=== PATIENT | female | born 1990 | race African-American/Black ===

== ENCOUNTER 2020-07-25 05:58 | Inpatient (IN) ==
--- NOTE | 2020-07-24 20:31 | History and Physical Report ---
DATE OF ADMISSION: 07/25/2020 CHIEF COMPLAINT: Intrauterine , oligohydramnios, previous x2. HISTORY OF PRESENT ILLNESS: The patient is a 30-year-old 4, para 2. She had 1 spontaneous AB. Present has been followed in our office. Her due date is 08/03/2020. She does have a history of having had oligohydramnios in previous . Her obstetrical history is as follows: In 2003 she had a male, 7 pounds 14 ounces, at 41 weeks, distress; second in 2014, female, 6 pounds 2 ounces at 38 weeks after ultrasound showed oligohydramnios. Present has been followed in our office. She was scanned for oligohydramnios about a month ago. Fluid was fine. We rescanned her due to her history of oligohydramnios and found that her ION was in 5% range. It was a vertex presentation, presently being scheduled for for oligohydramnios. PAST MEDICAL HISTORY: She has 2 children in good health. ALLERGIES: SHE IS ALLERGIC TO LATEX, AMOXICILLIN, PENICILLIN. PAST SURGICAL HISTORY: She had two previous C-sections and a gallbladder. SOCIAL HISTORY: No smoking, no alcohol intake. Works at home. FAMILY HISTORY: Mom is 53, has a history of asthma, phlebitis; father 55 in good health; has one brother in good health. REVIEW OF SYSTEMS: HEAD: No symptoms of frequent or severe headaches. EYES: No symptoms of blurred vision or double vision. EARS: No symptoms of frequent ear infections or difficulty hearing. NOSE: No symptoms of frequent nosebleeds or difficulty breathing through her nose. THROAT: No symptoms of frequent or severe sore throat, difficulty swallowing. RESPIRATORY SYSTEM: No history of asthma, chest pain, shortness of breath. PHYSICAL EXAMINATION: GENERAL: Well-developed, well-nourished, 30-year-old black female, alert, oriented x3 and cooperative, in no acute distress. EYES: Conjunctivae are pink. Sclerae white, no evidence of jaundice. EARS: Had normal light reflex bilaterally. NOSE: Had normal mucosa. Septum is midline. There were no polyps. THROAT: Had no erythema or evidence of infection. Teeth are in good state of repair. HEAD: Normocephalic, normal distribution of hair. NECK: Supple. Trachea midline. Thyroid is not enlarged. There is no adenopathy appreciated. Both carotids are of good intensity. HEART: Had regular rhythm. S1, S2 were normal. ABDOMEN: Term size fetus, vertex presentation. Well-healed Pfannenstiel scar. MUSCULOSKELETAL: Revealed no calf tenderness. PELVIC: Presenting part is floating. Cervix posterior and closed. IMPRESSIONS OF THIS CASE: History of two previous C-sections, history of cholecystectomy and oligohydramnios, intrauterine at 38+ weeks gestation.
[2020-07-25] MEDS ORDERED: CITRIC ACID/SODIUM CITRATE 15 ML UDC PO SCH (06:00)
[2020-07-25] MEDS ORDERED: LACTATED RINGER'S 1,000 ML IV SCH ×2 (06:00→10:00)
[2020-07-25] MEDS ORDERED: cefOXitin 2,000 MG in DEXTROSE 5% 50 ML IV SCH (06:00)
[2020-07-25 06:30] LABS: Basophils # (auto) 0.01 K/uL (0-0.2); Basophils % (auto) 0.1 %; Eosinophils # (auto) 0.01 K/uL (0-0.5); Eosinophils % (auto) 0.1 %; Hematocrit (blood only) 32.5 % (37-47); Immature Granulocytes # (auto) 0.05 K/uL (0.00-0.02); Immature Granulocytes % (auto) 0.4 %; Lymphocytes # (auto) 2.08 K/uL (1.2-3.4); Lymphocytes % (auto) 17.2 %; Mean Corpuscular Hemoglobin 21.6 pg (25-34); Mean Corpuscular Volume 70.3 fL (80-100); Mean Platelet Volume 9.5 fL (7.4-10.4); Monocytes # (auto) 0.72 K/uL (0.11-0.59); Neutrophils # (auto) 9.19 K/uL (1.4-6.5); Neutrophils % (auto) 76.2 %; Platelet Count 337 K/uL (130-400); RDW Coefficient of Variation 16.2 % (11.5-14.5); RDW Standard Deviation 41.4 fL (36.4-46.3); Red Blood Count 4.62 M/uL (4.2-5.4); White Blood Count 12.06 K/uL (4.8-10.8)
[2020-07-25 06:35] LABS: Mean Corpuscular Hgb Conc 30.8 g/dL (32-36)
[2020-07-25 06:44] LABS: INR 0.9 (0.9-1.1); Partial Thromboplastin Ratio 0.9; Partial Thromboplastin Time 25.9 Seconds (21.0-31.0); Prothrombin Time 9.9 Seconds (9.0-12.0)
[2020-07-25 06:48] LABS: Calcium 8.8 mg/dl (8.5-10.1); Est GFR (African American) 143.2; Est GFR (Non-African American) 123.5; Potassium 3.7 mmol/L (3.5-5.1)
[2020-07-25 06:54] LABS: Microcytosis Present
--- NOTE | 2020-07-25 07:51 | Anesthesiology Consultation ---
Date of Service July 25, 2020 Assessment & Plan Chart Review Chart Review: Acceptable Risk for Surgery and Patient NOT seen in Pre Admission Testing Consults Requested none ASA ASA3 Proposed Anesthesia Anesthesia Type: Spinal Risk / Benefits Reviewed With: PT / POA / Parent / Guardian, Accepts Plan and Informed Consent Obtained Additional Comments: covid test negative History Surgery Operation Date: 07/25/20 06:00 Proposed Procedures p Section in - Rafal Rosales MD Height/Weight Height: 5 ft 2.5 in Weight: 114.759 kg Allergies Allergy/AdvReac Type Severity Reaction Status Date / Time latex Allergy Severe Anaphylaxis Verified 07/20/20 09:54 papaya Allergy Swelling Verified 06/16/19 10:39 of Lip/Tongue/Throat amoxicillin AdvReac Mild HEADACHE Verified 06/16/19 10:38 Penicillins AdvReac Mild HEADACHES Verified 06/16/19 10:38 Medications Home Medications Medication Instructions Recorded Confirmed Last Taken ondansetron HCl [Zofran] 8 mg PO TID PRN 06/15/19 07/20/20 06/15/19 19:00 [id number] 1 tab PO DAILY 07/20/20 07/20/20 Unknown [] Active Medications Generic Name Dose Route Start Last Admin Trade Name Freq PRN Reason Stop Dose Admin Lactated Ringer's 1,000 mls @ 999 mls/hr 07/25/20 06:00 07/25/20 06:59 Lr IV 08/24/20 05:59 999 mls/hr .Q1H1M KESHIA Administration NPO Date Last Intake of Fluids: 07/24/20 Time Last Intake of Fluids: 22:00 Date Last Intake of Solids: 07/24/20 Time Last Intake of Solids: 22:00 Past Medical History Medical History Umbilical hernia Exercise / Class Metabolic Activity II 4-5 Yardwork/Stairs/Walk up hill Past Family History Family History Other No significant family history Past Surgical History Surgical History History of bronchoscopy Done for suspicious imaging, possibility of tumor. No findings. History of section X 2 History of cholecystectomy Hx of dilation and curettage Past Anesthesia History No Hx of Anesthesia Complications and No Family Hx of Anesthesia Complications History of PONV No Hx of PONV and No Hx of Motion Sickness Social History Smoking Status: Never smoker tobacco type: e-cigarettes Smoking cigarettes per day: quit vaping 05/2019 Do You Dip or Chew Tobacco: No Hx Alcohol Use: No Alcohol type: wine alcohol intake frequency: holidays/special occasions only Hx Substance Use: No substance use type: does not use Physical Exam Vital Signs Last Vital Signs Temp 36.7 C 07/25/20 07:17 Pulse 112 H 07/25/20 07:17 Resp 18 07/25/20 07:17 BP 130/79 07/25/20 07:17 Constitutional + morbidly obese ENMT Mouth: no dentition abnormality Thyromental Distance: < 3.5 Finger Breadths Mallampati Class: II Neck normal visual inspection and trachea midline; neck extension not limited Respiratory normal respiratory effort Auscultation: lungs clear to auscultation bilaterally Cardiovascular Rate/Rhythm: regular rate and regular rhythm Heart Sounds: no murmur Vessels: no carotid bruit Musculoskeletal Spine: normal cervical ROM Extremities: extremities normal to inspection Neurologic moves all extremities Motor/Sensory: no sensory deficit Psychiatric Orientation: alert and oriented x 3 Testing Laboratory Results 07/25/20 06:19 07/25/20 06:19 PT 9.9 Seconds (9.0-12.0) 07/25/20 06:19 INR 0.9 (0.9-1.1) 07/25/20 06:19 APTT 25.9 Seconds (21.0-31.0) 07/25/20 06:19 Blood Type Cancelled 07/25/20 06:19 Antibody Screen Cancelled 07/25/20 06:19
[2020-07-25] MEDS ORDERED: OXYTOCIN 10 UNITS/ML VIAL ONE ×3 (07:55→09:07)
[2020-07-25] MEDS ORDERED: fentaNYL citrate 100 MCG/2 ML VIAL ONE (07:58)
[2020-07-25] MEDS ORDERED: MoRPHine SULFATE PF 1 MG/ML 10 ML AMP/VIAL ONE (07:59)
[2020-07-25] MEDS ORDERED: PHENYLEPHRINE 100MCG/ML 5ML SYR ONE (08:50)
[2020-07-25] MEDS ORDERED: MAGNESIUM HYDROXIDE SUSP 30 ML UDC PO PRN (09:48)
[2020-07-25] MEDS ORDERED: BENZOCAINE 20% AER SPR 82.5 GM CAN EXT PRN (09:48)
[2020-07-25] MEDS ORDERED: DIPHTHERIA/TETANUS/PERTUSSIS 0.5 ML SYR/VIAL IM ONE (09:48)
[2020-07-25] MEDS ORDERED: SENNA 8.6 MG TAB PO PRN (09:48)
[2020-07-25] MEDS ORDERED: SUPERCREAM 0.870% 15 GM JAR EXT PRN (09:48)
[2020-07-25] MEDS ORDERED: HYDROCORTISONE ACETATE 25 MG SUPP PR PRN (09:48)
--- NOTE | 2020-07-25 09:48 | Post Operative Brief Note ---
Immediate Post Op Note v1 Date of Surgery July 25, 2020 Pre & Post Diagnosis Operation Date: 07/25/20 06:00 Pre-Op Diagnosis: Oligohydraminos Repeat section Post-Op Diagnosis: Same as above. Delivery of live male child at 0901 I identified the patient and participated in the time-out.: Yes Procedure Operation Date: 07/25/20 06:00 Actual Procedures p Section in LD(Bilateral) - Rafal Rosales MD Surgeon Rafal Rosales MD Corporate Controller Dr Corona Estimated Blood Loss 800 Findings Consistent with Post-Op Diagnosis Specimens placenta Drains Kathleen Catheter Anesthesia Type MAC Spinal Regional Complications none Disposition Accompanied Patient To Recovery: No Disposition: Recovery Room
[2020-07-25] MEDS ORDERED: NALOXONE HCL 1 MG in SODIUM CHLORIDE 0.9% 1000ML 1,000 ML IV PRN (10:10)
[2020-07-25] MEDS ORDERED: LACTATED RINGER'S 500 ML IV PRN (10:10)
[2020-07-25] MEDS ORDERED: OXYTOCIN 10 UNITS/ML VIAL IM ONE (10:10)
[2020-07-25] MEDS ORDERED: KETOROLAC 30 MG/ML VIAL IV PRN (10:10)
[2020-07-25] MEDS ORDERED: NALOXONE HCL 0.4 MG/1 ML VIAL/CARP IV PRN (10:10)
[2020-07-25] MEDS ORDERED: ONDANSETRON INJ 2 MG/ML 2 ML VIAL IV PRN (10:10)
[2020-07-25] MEDS ORDERED: ePHEDrine sulfate 50 MG/ML AMP IV PRN (10:10)
[2020-07-25] MEDS ORDERED: diphenhydrAMINE 50 MG/ML VIAL IV PRN (10:10)
[2020-07-25] MEDS ORDERED: MoRPHine SULFATE PF 1 MG/ML 10 ML AMP/VIAL INT SPINAL ONE (10:10)
[2020-07-25] MEDS ORDERED: PROMETHAZINE HCL 25 MG in SODIUM CHLORIDE 0.9% 50 ML IV PRN (10:10)
[2020-07-25] MEDS ORDERED: NALOXONE HCL 0.08 MG in SYRINGE 1.8 ML IV PRN (10:10)
[2020-07-25] MEDS ORDERED: SODIUM CHLORIDE 0.9% 1000ML 1,000 ML IV SCH (10:15)
[2020-07-25] MEDS ORDERED: NO NARCOTICS OR SEDATIVES SCH (10:15)
[2020-07-25] MEDS: OXYTOCIN 20 UNITS in LACTATED RINGER'S 1,000 ML IV SCH ×2 (10:46→19:24)
--- NOTE | 2020-07-25 13:08 | Operative Report (OR) ---
DATE OF OPERATION: 07/25/2020 PROCEDURE: Repeat low segment section. INDICATIONS FOR SURGERY: 1. Intrauterine 38+ weeks gestation. 2. Oligohydramnios. PREOPERATIVE DIAGNOSIS: Oligohydramnios. POSTOPERATIVE DIAGNOSIS: Delivered live infant. SURGEON: Michelle Rosales MD. PATIENT SCHEDULER: Dr. Corona. ESTIMATED BLOOD LOSS: 800 mL ANESTHESIA: Spinal. OPERATIVE FINDINGS AND PROCEDURE: The patient was brought to the OR table, correctly identified by armband and conversation. Spinal anesthesia was administered. Kathleen catheter was inserted into the bladder. Compression stockings were applied. The patient was draped in usual sterile fashion after painting lower abdomen with an alcohol based sterilizing solution and allowing 3 minutes for it to dry. After the anesthesia was tested and found to be adequate an incision was made through a previous scar, was carried down to the anterior fascia. Hemostasis was secured by electrocauterization. Fascia was incised transversely from the underlying muscle by blunt and sharp dissection. Recti muscles were in the midline. Peritoneum was carefully raised and entered. A self-retraining retractor was placed in the incision exposing the lower uterine segment. There was a thin window on the left side. We basically went through this window and extended the incision. A tiny bit of amniotic fluid was seen. A vectis retractor was applied to the head and a live male infant was delivered via direct occiput anterior position. was attended to by the sorter operator who was scrubbed and present at the time of delivery. Cord was clamped and cut. Cord blood was taken. Placenta was removed manually. Uterus, tubes, and ovaries were brought out through the incision. Ten units of Pitocin was injected into the myometrium. Myometrium was cleansed with a clean sponge. A careful layered anatomical approximation of the lower uterine segment was now performed. The muscular layer was approximated with continuous heavy chromic, then the fascial layer was approximated over this with a heavy Vicryl and we repaired the thin defect in the lower uterine segment. I then used about 3 interrupted [id number] sutures of Vicryl to further bolster the lower uterine segment and repair the thin area. After this palpation revealed good approximation with no thin areas left. We then cleansed the pelvis of all blood clots and debris. The incisional line was hemostatic. We replaced uterus, tubes, and ovaries into the abdomen, removed the retractor, did a layered closure of the abdomen. Peritoneum was closed with a mattress suture of chromic catgut. Recti muscles were approximated with interrupted [id number] suture of chromic catgut. The fascia was closed with continuous interlocking suture of Vicryl on each side, tied in the midline. SubQ was approximated with a running plain. Skin edges were approximated with staple clips. The patient tolerated the procedure well and left the OR in good condition. I attest to the content of the Intraoperative Record and any orders documented therein. Any exception s are noted below.
[2020-07-25] MEDS: SIMETHICONE 80 MG CHEW PO SCH ×2 (18:08→21:06)
[2020-07-25] MEDS: DOCUSATE SODIUM 100 MG CAP PO SCH (21:05)
--- NOTE | 2020-07-26 06:06 | Obstetrical Progress Note ---
Date of Service July 26, 2020 Assessment & Plan Admission and Anticipated Discharge Date Admission Date: July 25, 2020 Physical Exam Physical Exam: abdomen soft and non tender bandage is clean and dry bowel sounds hypoactive no calf tenderness vaginal bleeding scant hgb 10.0 Results & Data ([facility]) Vital Signs (Past 12 Hours) Vital Signs Temp Pulse Resp BP Pulse Ox 07/26/20 05:30 18 97 07/26/20 04:20 36.8 C 100 H 20 122/78 100 07/26/20 03:35 18 97 07/26/20 02:30 18 96 07/26/20 01:35 18 97 07/26/20 00:30 18 98 07/26/20 00:25 36.5 C 94 H 18 118/72 98 07/25/20 23:30 18 97 07/25/20 22:30 18 97 07/25/20 21:25 18 98 07/25/20 20:25 18 99 07/25/20 19:50 36.3 C L 103 H 20 134/76 98 07/25/20 19:15 18 99 07/25/20 18:55 18 98
[2020-07-26 06:17] LABS: Basophils # (auto) 0.02 K/uL (0-0.2); Basophils % (auto) 0.2 %; Eosinophils # (auto) 0.02 K/uL (0-0.5); Eosinophils % (auto) 0.2 %; Hematocrit (blood only) 30.3 % (37-47); Hemoglobin 9.5 g/dL (12.0-16.0); Immature Granulocytes # (auto) 0.03 K/uL (0.00-0.02); Immature Granulocytes % (auto) 0.3 %; Lymphocytes % (auto) 11.3 %; Mean Corpuscular Hgb Conc 31.4 g/dL (32-36); Mean Corpuscular Volume 70.3 fL (80-100); Mean Platelet Volume 9.1 fL (7.4-10.4); Monocytes % (auto) 6.1 %; Neutrophils # (auto) 9.44 K/uL (1.4-6.5); Neutrophils % (auto) 81.9 %; Platelet Count 311 K/uL (130-400); RDW Standard Deviation 40.9 fL (36.4-46.3); Red Blood Count 4.31 M/uL (4.2-5.4); White Blood Count 11.51 K/uL (4.8-10.8)
[2020-07-26] MEDS: FERROUS SULFATE 325 MG TAB PO SCH (07:55)
[2020-07-26] MEDS: SIMETHICONE 80 MG CHEW PO SCH ×4 (07:55→21:36)
[2020-07-26] MEDS: PRENATAL VITAMIN 1 TAB PO SCH (07:56)
[2020-07-26] MEDS: DOCUSATE SODIUM 100 MG CAP PO SCH ×2 (07:56→21:36)
--- NOTE | 2020-07-26 08:23 | Communication Note ---
Date of Service: July 26, 2020 Pt is s/p SAB for C Section;no c/o H/A; No C/O weakness or paresthesias to LE's; Pt is ambulating and doing well.
[2020-07-26] MEDS ORDERED: DC INTRASPINAL MORPHINE ONE (10:14)
[2020-07-26] MEDS ORDERED: MEPERIDINE HCL 50 MG/ML CARP IV PRN (10:15)
[2020-07-26] MEDS ORDERED: KETOROLAC 30 MG/ML VIAL IV PRN (10:15)
[2020-07-26] MEDS ORDERED: diphenhydrAMINE 50 MG/ML VIAL IV PRN (10:15)
[2020-07-26] MEDS ORDERED: PROMETHAZINE HCL 25 MG in SODIUM CHLORIDE 0.9% 50 ML IV PRN (10:15)
[2020-07-26] MEDS ORDERED: diphenhydrAMINE Capsule 25 MG CAP PO PRN (10:15)
[2020-07-26] MEDS ORDERED: ZOLPIDEM TARTRATE 5 MG TAB PO PRN (10:15)
[2020-07-26] MEDS ORDERED: ONDANSETRON INJ 2 MG/ML 2 ML VIAL IV PRN (10:15)
[2020-07-26] MEDS: IBUPROFEN 600 MG TAB PO PRN (17:54)
[2020-07-26] MEDS: oxyCODONE/ACETAMINOPHEN 5mg/325mg TAB PO PRN (17:55)
[2020-07-26] MEDS ORDERED: bisacodyL 5 MG TABEC PO SCH (20:00)
[2020-07-27] MEDS: oxyCODONE/ACETAMINOPHEN 5mg/325mg TAB PO PRN ×3 (00:48→11:56)
[2020-07-27] MEDS: IBUPROFEN 600 MG TAB PO PRN ×3 (00:48→11:55)
[2020-07-27 06:55] LABS: Hematocrit (blood only) 32.1 % (37-47); Hemoglobin 9.9 g/dL (12.0-16.0)
[2020-07-27] MEDS: FERROUS SULFATE 325 MG TAB PO SCH (08:00)
[2020-07-27] MEDS: DOCUSATE SODIUM 100 MG CAP PO SCH (08:00)
[2020-07-27] MEDS: PRENATAL VITAMIN 1 TAB PO SCH (08:00)
[2020-07-27] MEDS: SIMETHICONE 80 MG CHEW PO SCH ×2 (08:00→11:55)
[2020-07-27] MEDS ORDERED: bisacodyL 10 MG SUPP PR PRN (09:48)
--- NOTE | 2020-07-27 12:44 | Obstetrical Progress Note ---
Date of Service July 27, 2020 Assessment & Plan Admission and Anticipated Discharge Date Admission Date: July 25, 2020 Physical Exam Physical Exam: abdomen soft and non tender incision is clean and dry passing flatus no calf tenderness ambulating well vaginal bleeding scant hgb 9.9 Results & Data ([facility]) Vital Signs (Past 12 Hours) Vital Signs Temp Pulse Resp BP Pulse Ox 07/27/20 08:15 36.8 C 90 18 122/83 100
--- NOTE | 2020-07-27 13:01 | Discharge Summary (DS) ---
DATE OF DISCHARGE: 07/27/2020 Mrs. Panchal has been followed in our office for care and delivery. She has a history of having 2 previous sections and oligohydramnios with her last section. We checked her for oligohydramnios. Then we checked her the day prior to delivery and her ION was under 5% with just 1 tiny pocket. She was admitted the following morning to the labor floor where a third section was performed without difficulty. There was a lower uterine window where the lower uterine segment was weak, a small section on the left side. We essentially went through that window and extended the incision and delivered the . As previously stated amount of amniotic fluid was miniscule. Surgery went well. We bolstered the lower uterine segment to repair the window for any future pregnancies and did a 2-3 layer closure with several [id number] sutures of Vicryl. We did a full multilayer closure of the abdomen. Postoperatively, the patient did well. Her preoperative hemoglobin was 10.0 on the day of admission. On the day of discharge, hemoglobin was 9.9. Bowel sounds took about 24 hours to come back. She remained afebrile. At the time of discharge, she was requesting discharge. She was ambulating well, passing gas, tolerating a regular diet. Her pain was well controlled with a combination of Percocet and Motrin. She was given the usual postoperative instructions and told to come back in a week for removal of serena and to call if she had temperature or any heavy bleeding.
== END 2020-07-27 14:45 | disposition home or self-care (01) | DRG 787 ==
LOC: 4S1 05:58 → 4S2 12:50